=== PATIENT | female | born 1990 | race Caucasian/White ===

== ENCOUNTER 2022-08-09 11:43 | Outpatient (CLI) | payer BC, SELFPAY | END 2022-08-09 11:44 | disposition home or self-care (01) | LOC: AMB 08-18 15:27 | PROVIDERS: Visit Provider Family Medicine | DX: S39.92XA Unspecified injury of lower back, initial encounter (principal); V80.010A Animal-rider injured by fall from or being thrown from horse in noncollision accident, initial encounter; Y92.39 Other specified sports and athletic area as the place of occurrence of the external cause | CPT/HCPCS: A0425; A0427 ==

== ENCOUNTER 2022-09-01 09:59 | Outpatient (CLI) | payer BC, SELFPAY ==
--- NOTE | 2022-09-01 10:15 | CRLHL7_ITS ---
For Patients: As a result of the Century Cures Act, medical imaging exams and procedure reports are released immediately into your electronic medical record. You may view this report before your referring provider. If you have questions, please contact your health care provider. ULTRASOUND-GUIDED BREAST BIOPSY AND POST-BIOPSY DIGITAL MAMMOGRAM FOR BIOPSY MARKER PLACEMENT CLINICAL HISTORY: Solid nodule LEFT breast, indeterminate. COMPARISON STUDIES: Ultrasound 08/26/2022. TECHNIQUE: Real-time ultrasound with image documentation was used for targeting the breast lesion. Core biopsy specimens were obtained using an automated gun with a 18-gauge biopsy needle. Post-biopsy CC and ML digital mammograms were obtained to document position of the biopsy marker. CONSENT and TIME OUT: The procedure, risks, and alternatives were explained to the patient and a consent was signed. [place] Protocol was followed including pre-procedure verification that relevant information/documentation was available, reviewed and properly matched to the patient; consent accurate and complete; and equipment and supplies available. Time Out was conducted just prior to starting procedure to verify the four required elements: patient identity, correct side/site marked (if applicable), procedure, relevant images/results properly labeled and displayed (if applicable). PROCEDURE: The patient was positioned supine on the ultrasound table. The breast was prepped with ChloraPrep. 8 cc of 1 percent lidocaine used for local anesthesia. Core samples were obtained. A sterile metal biopsy clip was placed percutaneously to samy the lesion position within the breast. The specimens were placed in 10% formalin and sent to the pathology department. Pressure was held on the biopsy site until all bleeding subsided. The skin incision was closed with Steri-Strips. An ice pack was positioned over the biopsy site. Post-biopsy instructions were reviewed with the patient, and a written copy was given to her. LATERALITY: LEFT breast. LESION: Hypoechoic solid nodule at posterior depth measuring 2.1 cm at 1 o`clock 6 cm from the nipple. SUSPICION FOR MALIGNANCY: Low, probable fibroadenoma. NUMBER OF SAMPLES: 5. BIOPSY CLIP SHAPE: Oval. PROXIMITY OF CLIP TO TARGET: Within the lesion. IMPRESSION: Ultrasound-guided breast biopsy. When the pathology report is available, an addendum to this report will be made. ACR not applicable Dictated by Catracho Grover MD @ 09/01/2022 10:56:21 AM jj/Dictated by: Catracho Grover MD @ 09/01/2022 10:56:00 AM (Electronically Signed) ----- ADDENDUM ----- Pathology demonstrates benign fibroadenoma without atypia or malignancy. This is concordant. Age-appropriate screening mammography recommended. Dictated by Catracho Grover MD @ Sep 01 2022 10:56AM Signed by:?Catracho Grover MD @09/01/2022 3:54:18 PM (Electronic Signature)
--- NOTE | 2022-09-01 11:00 | CRLHL7_ITS ---
For Patients: As a result of the Century Cures Act, medical imaging exams and procedure reports are released immediately into your electronic medical record. You may view this report before your referring provider. If you have questions, please contact your health care provider. PLEASE SEE ULTRASOUND-GUIDED LEFT BREAST BIOPSY PERFORMED SAME DAY CRL:[email or web address] donato/Dictated by: Catracho Grover MD @ 09/01/2022 10:56:00 AM (Electronically Signed)
== END 2022-09-01 10:00 | disposition home or self-care (01) ==
PROVIDERS: PCP Family Medicine; Visit Provider Surgery
DX: N63.21 Unspecified lump in the left breast, upper outer quadrant (principal); D24.2 Benign neoplasm of left breast
CPT/HCPCS: 19083; 77065; 88305; A4648; A4649

== ENCOUNTER 2023-02-09 13:30 | Outpatient (RCR) | payer BC, SELFPAY | END 2023-05-15 14:34 | disposition home or self-care (01) | PROVIDERS: PCP Family Medicine; Visit Provider Neurological Surgery | DX: S32.019A Unspecified fracture of first lumbar vertebra, initial encounter for closed fracture (principal); Z74.09 Other reduced mobility; R26.81 Unsteadiness on feet; R26.9 Unspecified abnormalities of gait and mobility; R53.1 Weakness; M25.572 Pain in left ankle and joints of left foot; Z51.89 Encounter for other specified aftercare | CPT/HCPCS: 97110; 97161 ==